=== PATIENT | male | born 1980 | race Caucasian/White ===

== ENCOUNTER 2018-01-09 10:00 | Emergency (ER) | payer MEDICAID ==
[~2018-01-09] VITALS: Ht 185.4 cm; Wt 68.0 kg
[2018-01-09 10:03] VITALS: BP 128/88; PULSE 80; RESP 16; TEMP 98.2; O2SAT 100
[2018-01-09] MEDS ORDERED: KETOROLAC TROMETHAMINE 60 MG/2 ML (IM) VIAL IM ONE (10:15)
--- NOTE | 2018-01-09 10:25 | PD ---
HPI Chief Complaint: Complaint Time Seen by Provider: 10:07 Travel History International Travel<30 days: No Contact w/Intl Traveler<30days: No Traveled to known affect area: No History of Present Illness HPI 37-year-old male presents to the emergency department with complaint of increased right testicular pain today after work. He has had right testicular pain for the past year and has been told he had epididymitis, bilateral varicoceles, and enlarged prostate. He does have an appointment with urologist in 2-1/2 months. He has had multiple ultrasounds of his testicles at [facility]. Reports swelling of the right testicle. Denies penile discharge. Reports dysuria one day ago, but not now. Rates pain 02/05. Has been taking prescribed NSAIDs, from his primary care provider, for symptom management. Has not taken any medications this morning. Pain aggravated with heavy lifting, unloading a truck while at work today. Pain is worse with lifting, movement, sitting. Better with lying down. Primary care provider is Dr. Mitchell. Has urologist and does not know the name. Denies significant past medical history. No known allergies. Has no other medical complaints. No other modifying factors or associated signs and symptoms. PFSH Past Medical History Diminished Hearing: No Genitourinary: Yes (EPIDIDIMITIS) Medical other: Yes (ENLARGED PROSTATES) Past Surgical History Other Surgery: Yes (HERNIA REPAIR-INFANT) Social History Alcohol Use: No Tobacco Use: Yes (/2 PPD) Substance Use: Yes (MARIJUANA) Allergies-Medications (Allergen,Severity, Reaction): Coded Allergies: No Known Allergies (Unverified , 01/09/18) Reported Meds & Prescriptions Reported Meds & Active Scripts Active No Active Prescriptions or Reported Medications Review of Systems Except as stated in HPI: all other systems reviewed are Neg Physical Exam Narrative GENERAL: Well-nourished, well-developed male patient, in no acute distress SKIN: Warm and dry. HEAD: Atraumatic. Normocephalic. EYES: Pupils equal and round. ENT: Mucosa pink and moist. NECK: Trachea midline. No lymphadenopathy. CARDIOVASCULAR: Regular rate and rhythm. No murmur appreciated. RESPIRATORY: No accessory muscle use. Clear to auscultation. Breath sounds equal bilaterally. GASTROINTESTINAL: Abdomen soft and nondistended; with tenderness at the umbilicus on palpation. Hepatic and splenic margins not palpable. Bowel sounds are active 4 quadrants. GENITOURINARY: Exam done in the presence of a nurse. Circumcised. Testes descended bilaterally without evidence of rotation; right testicle is minimally swollen, when compared to the left on palpation, and with tenderness on palpation. Testicles do not appear swollen on visualization. No lesions or erythema. No urethral discharge. MUSCULOSKELETAL: No obvious deformities. No clubbing. No cyanosis. No edema. NEUROLOGICAL: Awake and alert. Oriented 3. No obvious cranial nerve deficits. Motor grossly within normal limits. Normal speech. Moves all extremities. 5/5 strength to all extremities. PSYCHIATRIC: Appropriate mood and affect; insight and judgment normal. Data Data Last Documented VS Vital Signs Date Time Temp Pulse Resp B/P (MAP) Pulse Ox O2 Delivery O2 Flow Rate FiO2 01/09/18 11:40 16 01/09/18 10:03 98.2 80 128/88 (101) 100 Orders Orders Us Testicles W Doppler (01/09/18 ) Urinalysis - C+S If Indicated (01/09/18 10:15) Gc And Chlamydia Pcr (01/09/18 10:15) Ketorolac Inj (Toradol Inj) (01/09/18 10:15) Labs Laboratory Tests Test 01/09/18 11:15 Urine Color LIGHT-YELLOW Urine Turbidity CLEAR Urine pH 7.5 Urine Specific [place] 1.005 Urine Protein NEG mg/dL Urine Glucose (UA) NEG mg/dL Urine Ketones NEG mg/dL Urine Occult Blood NEG Urine Nitrite NEG Urine Bilirubin NEG Urine Urobilinogen LESS THAN 2.0 MG/DL Urine Leukocyte Esterase NEG Urine WBC 1 /hpf Microscopic Urinalysis Comment CULT NOT INDICATED MDM Medical Decision Making Medical Screen Exam Complete: Yes Emergency Medical Condition: Yes Medical Record Reviewed: Yes Differential Diagnosis Testicular pain, epididymitis, testicular torsion Narrative Course 37-year-old male with right testicular pain. This apparently has been going on and off for the past year. He has been told he has epididymitis, bilateral varicoceles, and enlarged prostate. He does have a follow-up appointment with urologist in 2 and half months. His pain worsened this morning after doing heavy lifting, while unloading a truck at work. I discussed the patient with my attending physician, Dr. Campbell, and he agrees with my plan of care. Testicular ultrasound, Toradol, urinalysis, chlamydia, gonorrhea ordered. 1217: Testicular ultrasound concludes: Scrotum Ultrasound 01/09/18 0000 Signed Impressions: Service Date/Time: Tuesday, January 09, 2018 10:36 - CONCLUSION: 1. Bilateral small varicoceles. 2. Very small right-sided hydrocele. 3. Otherwise, unremarkable testicular ultrasound examination. Domenic Murillo MD Discussed ultrasound findings with the patient. Instructed patient to follow- up with urologist as scheduled appointment. Ibuprofen prescribed for home. Instructed patient to follow up with primary care provider. Patient verbalizes understanding and agreement with treatment plan. Patient is medically cleared and stable for discharge. Discussed reasons to return to the emergency department. Patient agrees with treatment plan. The patients vital signs are stable and the patient is stable for outpatient follow-up and treatment. Patient discharged home, stable and in no acute distress. Diagnosis Primary Impression: Bilateral varicoceles Additional Impression: Right hydrocele Referrals: Primary Care Physician Urologist Patient Instructions: General Instructions, Hydrocele (ED), Varicocele (ED) Additional Instructions: Ibuprofen and/or Tylenol as directed and as needed for pain Avoid aggravating activity Follow-up with urologist Follow-up with primary care provider Return to the emergency department immediately with worsening of symptoms Med/Other Pt SpecificInfo: No Change to Meds, No Meds Exist/No RX given Scripts No Active Prescriptions or Reported Meds Disposition: 01 DISCHARGE HOME Condition: Stable Cheryl Reyes January 09, 2018 10:25
--- NOTE | 2018-01-09 11:32 | RADRPT ---
EXAM DATE/TIME: 01/09/2018 10:36 [facility] COMPARISON: No previous studies available for comparison. [facility] INDICATIONS : Testicular pain, worst on right. MEDICAL HISTORY : Benign prostatic hyperplasia, (BPH) Epididymitis.Varicoceles. SURGICAL HISTORY : Hernia repair. ENCOUNTER: Initial ACUITY: 1 month PAIN SCORE: 0/10 LOCATION: Bilateral testicle. MEASUREMENTS: RIGHT TESTICLE: 4.4 x 2.7 x 3.6 cm LEFT TESTICLE: 4.5 x 2.2 x 3.0 cm FINDINGS: RIGHT TESTICLE: Homogeneous echotexture without intra or extratesticular mass. Blood flow is symmetric and within no rmal limits. Small varicocele. Very small hydrocele. Epididymis is within normal limits. LEFT TESTICLE: Homogeneous echotexture without intra or extratesticular mass. Blood flow is symmetric and within no rmal limits. No hydrocele. Small varicocele. Epididymis is within normal limits. SCROTUM: Within normal limits. CONCLUSION: 1. Bilateral small varicoceles. 2. Very small right-sided hydrocele. 3. Otherwise, unremarkable testicular ultrasound examination. Domenic Murillo MD on January 09, 2018 at 11:28 Board Certified Radiologist. This report was verified electronically.
[2018-01-09 11:40] VITALS: RESP 16
[2018-01-09 11:43] LABS: BILIRUBIN, URINE NEG (NEG); BLOOD, URINE NEG (NEG); GLUCOSE,URINE NEG (NEG); KETONE, URINE NEG (NEG); NITRITE,URINE NEG (NEG); PH, URINE 7.5 (5.0-8.5); URINE COLOR LIGHT-YELLOW (YELLW/STRAW); URINE LEUKOCYTE ESTERASE NEG (NEG)
== END 2018-01-09 13:10 | disposition home or self-care (01) ==
LOC: NEPD 10:00
DX: I86.1 Scrotal varices (principal); N43.3 Hydrocele, unspecified; F12.90 Cannabis use, unspecified, uncomplicated; F17.200 Nicotine dependence, unspecified, uncomplicated
CPT/HCPCS: 76870; 81001; 87491; 87591; 93975; 96372; 99284; J1885